=== PATIENT | male | born 1975 | race African-American/Black ===

== ENCOUNTER 2017-05-22 23:19 | Emergency (ER) | payer BC ==
[~2017-05-22] VITALS: Ht 185.4 cm; Wt 104.3 kg
[~2017-05-22 23:19] MED LIST: NORCO 5-325 TA1 EACH PO; ONDANSETRON HCL4 M2 PO; PROTONIX40 MG PO
[2017-05-23] MEDS ORDERED: CLEOCIN HCL150 MG PO (02:00)
[2017-05-23] MEDS ORDERED: TRAMADOL 50 MG50 MG PO (02:00)
== END 2017-05-23 02:14 | disposition home or self-care (01) ==
LOC: ER 23:19
DX: L72.3 Sebaceous cyst (principal); L02.11 Cutaneous abscess of neck; J45.909 Unspecified asthma, uncomplicated